=== PATIENT | male | born 1970 | race Caucasian/White ===

== ENCOUNTER 2016-03-17 20:19 | Emergency (ER) | payer OTHER ==
[~2016-03-17] VITALS: Ht 188 cm; Wt 90.7 kg
[2016-03-17 20:25] VITALS: BP 147/85
[2016-03-17 21:06] LABS: KETONES,URINE Negative (NEGATIVE); LEUKOCYTE ESTERASE ,URINE Negative (NEGATIVE)
[2016-03-17 21:15] LABS: ADD UA MICROSCOPIC YES
[2016-03-17 21:23] LABS: ADD URINE CULTURE NO; WBC,URINE 0-2 /HPF (0-3)
== END 2016-03-17 21:53 | disposition home or self-care (01) ==
LOC: ER 20:27
DX: R30.0 Dysuria (principal); N34.2 Other urethritis; R31.9 Hematuria, unspecified
CPT/HCPCS: 81000-TC; 87491; 87591; A4606; Z7610

== ENCOUNTER 2017-10-19 18:55 | Emergency (ER) | payer OTHER ==
[~2017-10-19] VITALS: Ht 182.9 cm; Wt 99.8 kg
--- NOTE | 2017-10-19 19:30 | NUR ---
LEFT SIDED CP X 1 HOUR [employer], NON RADIATING. WORSENED TODAY AFTER DRINKING COFFEE. NAD NOTED. PT AAO X4, AMB WITH STEADY GAIT. RR EVEN AND UNLABORED. MD AT BEDSIDE FOR EVAL.
--- NOTE | 2017-10-19 19:49 | NUR ---
BLOOD DRAWN CALLED LAB FOR PICKUP
[2017-10-19] MEDS ORDERED: ASPIRIN 81 MG TAB.CHEW ONE (19:52)
[2017-10-19] MEDS: ASPIRIN 81 MG TAB.CHEW PO ONE (19:54)
[2017-10-19 19:57] LABS: BASOPHILS # (AUTO) 0.2 /CMM (0.0-0.2); BASOPHILS % (AUTO) 2.1 % (0.0-2.0); EOSINOPHILS % (AUTO) 3.6 % (0.0-6.0); HEMATOCRIT 51 % (39-51); HEMOGLOBIN 16.5 g/dL (13.5-17.5); LYMPHOCYTES % (AUTO) 39.6 % (20.0-44.0); MEAN CORPUSCULAR HEMOGLOBIN 29 PG (26.0-33.0); MEAN CORPUSCULAR HGB CONC 33 g/dl (31.0-36.0); MEAN CORPUSCULAR VOLUME 88 fL (80-96); MONOCYTES # (AUTO) 0.5 /CMM (0.1-1.30); MONOCYTES % (AUTO) 6.4 % (2.0-12.0); NEUTROPHILS # (AUTO) 3.7 /CMM (1.8-8.9); NEUTROPHILS % (AUTO) 48.3 % (43.0-81.0); PLATELET COUNT (AUTO) 364 /CMM (150-450); RDW COEFFICIENT OF VARIATION 12.1 (11.5-15.0); RED BLOOD CELL COUNT(AUTO) 5.76 MIL/uL (4.5-6.0); WHITE BLOOD COUNT (AUTO) 7.7 K/uL (4.3-11.0)
[2017-10-19 20:12] LABS: TROPONIN I < 0.017 ng/mL (0.00-0.056)
[2017-10-19 20:48] LABS: CALCIUM, SERUM 9.1 mg/dL (8.5-10.1); CARBON DIOXIDE 28 mmol/L (21-32); CHLORIDE 101 mmol/L (98-107); CREATININE 1.1 mg/dL (0.6-1.3); GLUCOSE 96 mg/dL (74-106); POTASSIUM 4.1 mmol/L (3.5-5.1); SODIUM SERUM 139 mmol/L (136-145); UREA NITROGEN, BLOOD 16 mg/dL (7-18)
[2017-10-19 20:54] LABS: ALANINE AMINOTRANSFERASE 63 U/L (12-78); ALBUMIN 4.5 g/dL (3.4-5.0); ALKALINE PHOSPHATASE 100 U/L (46-116); ASPARTATE AMINOTRANSFERASE 33 U/L (15-37); BILIRUBIN,DIRECT 0.1 mg/dL (0.0-0.2); TOTAL PROTEIN, SERUM 8.1 g/dL (6.4-8.2)
[2017-10-19 23:38] VITALS: BP 160/101
== END 2017-10-19 23:39 | disposition home or self-care (01) ==
LOC: ER 18:57
DX: R07.89 Other chest pain (principal); I10 Essential (primary) hypertension
CPT/HCPCS: 36415; 71045-TC; 80048-TC; 80076-TC; 84484-TC; 85025-TC; A4606; Z7610

== ENCOUNTER 2018-03-08 16:30 | Emergency (ER) | payer OTHER ==
[~2018-03-08] VITALS: Ht 188 cm; Wt 98.4 kg
[2018-03-08 16:44] VITALS: BP 172/112
== END 2018-03-08 17:01 | disposition home or self-care (01) ==
LOC: ER 16:30
DX: R59.1 Generalized enlarged lymph nodes (principal); I10 Essential (primary) hypertension

== ENCOUNTER 2018-08-18 14:24 | Emergency (ER) | payer OTHER ==
[~2018-08-18] VITALS: Ht 188 cm; Wt 98.9 kg
[2018-08-18 15:23] LABS: BASOPHILS # (AUTO) 0.1 /CMM (0.0-0.2); BASOPHILS % (AUTO) 0.9 % (0.0-2.0); EOSINOPHILS % (AUTO) 4.3 % (0.0-6.0); HEMATOCRIT 45 % (39-51); HEMOGLOBIN 15.4 g/dL (13.5-17.5); LYMPHOCYTES # (AUTO) 2.6 /CMM (0.8-4.8); LYMPHOCYTES % (AUTO) 40.1 % (20.0-44.0); MEAN CORPUSCULAR HGB CONC 34 g/dl (31.0-36.0); MEAN CORPUSCULAR VOLUME 88 fL (80-96); MONOCYTES # (AUTO) 0.6 /CMM (0.1-1.30); MONOCYTES % (AUTO) 8.6 % (2.0-12.0); NEUTROPHILS % (AUTO) 46.1 % (43.0-81.0); PLATELET COUNT (AUTO) 324 /CMM (150-450); RED BLOOD CELL COUNT(AUTO) 5.14 MIL/uL (4.5-6.0); WHITE BLOOD COUNT (AUTO) 6.6 K/uL (4.3-11.0)
[2018-08-18] MEDS ORDERED: KETOROLAC TROMETHAMINE 15 MG/ML VIAL ONE (15:27)
[2018-08-18] MEDS ORDERED: ONDANSETRON HCL/PF 4 MG/2 ML VIAL ONE (15:27)
[2018-08-18] MEDS ORDERED: IV NS 0.9% 1,000 ML BAG IV ONE (15:30)
[2018-08-18] MEDS ORDERED: ONDANSETRON HCL/PF 4 MG/2 ML VIAL IVP ONE (15:30)
[2018-08-18] MEDS ORDERED: KETOROLAC TROMETHAMINE INJ 30 MG/ML VIAL IV ONE (15:30)
[2018-08-18 15:31] LABS: CALCIUM, SERUM 8.3 mg/dL (8.5-10.1); CREATININE 0.9 mg/dL (0.6-1.3); POTASSIUM 3.7 mmol/L (3.5-5.1)
[2018-08-18 15:36] LABS: ALBUMIN 3.6 g/dL (3.4-5.0); BILIRUBIN,DIRECT 0.1 mg/dL (0.0-0.2); BILIRUBIN,TOTAL 0.9 mg/dL (0.2-1.0); TOTAL PROTEIN, SERUM 6.9 g/dL (6.4-8.2)
[2018-08-18 16:42] VITALS: BP 150/100
--- NOTE | 2018-08-18 16:46 | NUR ---
for discharge- Patient discharged to home in stable condition. Written and verbal after care instructions given. Patient verbalizes understanding of instruction. Ambulatory Stable
== END 2018-08-18 16:45 | disposition home or self-care (01) ==
LOC: ER 14:28
DX: R10.13 Epigastric pain (principal); R21 Rash and other nonspecific skin eruption; I10 Essential (primary) hypertension
CPT/HCPCS: 36415; 71045; 80048; 80076; 83690; 85025; 96374; 96375; 99284; J1885; J2405; J7030

== ENCOUNTER 2019-03-25 14:54 | Emergency (ER) | payer OTHER ==
[~2019-03-25] VITALS: Ht 188 cm; Wt 102.1 kg
--- NOTE | 2019-03-25 14:59 | NUR ---
CAME IN FOR ON AND OFF COUGH AND CONGESTION x 2 WEEKS, TO ER BED 9, HOOKED TO BP MONITOR AND POX, CHANGED TO HOSP GOWN, WARM BLANKET PROVIDED, PATIENT AOx ,4 BREATHING EVEN AND UNLABORED, NAD NOTED.
--- NOTE | 2019-03-25 15:00 | NUR ---
DR MORAN AT BEDSIDE
[2019-03-25] MEDS ORDERED: BENZONATATE 100 MG CAPSULE PO STA (15:04)
[2019-03-25] MEDS ORDERED: GUAIFENESIN LA 600 MG TABLET.SA PO ONE ×2 (15:20→15:30)
--- NOTE | 2019-03-25 16:31 | NUR ---
Patient discharged to home in stable condition. Written and verbal after care instructions given. Patient verbalizes understanding of instruction.
[2019-03-25 16:32] VITALS: BP 152/94
== END 2019-03-25 16:32 | disposition home or self-care (01) ==
LOC: ER 14:57
DX: J20.9 Acute bronchitis, unspecified (principal); I10 Essential (primary) hypertension
CPT/HCPCS: 71046

== ENCOUNTER 2019-04-30 15:40 | Emergency (ER) | payer OTHER ==
[~2019-04-30] VITALS: Ht 188 cm; Wt 99.8 kg
[2019-04-30 16:02] VITALS: BP 179/111
--- NOTE | 2019-04-30 16:32 | NUR ---
Patient discharged to home in stable condition. Written and verbal after care instructions given. Patient verbalizes understanding of instruction.
== END 2019-04-30 16:32 | disposition home or self-care (01) ==
LOC: ER 15:42
DX: J20.9 Acute bronchitis, unspecified (principal); I10 Essential (primary) hypertension

== ENCOUNTER 2019-10-09 19:31 | Emergency (ER) | payer OTHER ==
[~2019-10-09] VITALS: Ht 188 cm; Wt 102.1 kg
[2019-10-09 19:52] VITALS: BP 187/115
[2019-10-09] MEDS ORDERED: DOCUSATE SODIUM LIQ 100 MG/10 ML UDC ONE (20:21)
[2019-10-09] MEDS ORDERED: DOCUSATE SODIUM LIQ 100 MG/10 ML UDC NG ONE (20:30)
== END 2019-10-09 21:57 | disposition home or self-care (01) ==
LOC: ER 19:34
DX: H61.21 Impacted cerumen, right ear (principal); I10 Essential (primary) hypertension
CPT/HCPCS: 69209; 99282; A6403; A6407

== ENCOUNTER 2019-10-13 14:47 | Emergency (ER) | payer OTHER ==
[~2019-10-13] VITALS: Ht 193 cm; Wt 90.7 kg
[2019-10-13 15:26] VITALS: BP 174/110
== END 2019-10-13 16:20 | disposition home or self-care (01) ==
LOC: ER 14:51
DX: H60.91 Unspecified otitis externa, right ear (principal); I10 Essential (primary) hypertension

== ENCOUNTER 2020-07-11 14:00 | Emergency (ER) | payer OTHER ==
[~2020-07-11] VITALS: Ht 188 cm; Wt 104.3 kg
--- NOTE | 2020-07-11 14:27 | NUR ---
BIBS FROM HOME TO ER BED 7. AAOX4. NOT IN RESP DISTRESS. AMBULATORY. CAME IN FOR SOB. PER PT HE HAS BEEN FEELING SOB FOR THE PAST 5 DAYS. PT IS SATTING 100% ON RA BREATHING EVEN AND UNLABORED. MD WAS AT THE BEDSIDE FOR EVAL. ORDERS RECEIVED, NOTED AND CARRIED OUT.
[2020-07-11 14:39] LABS: BASOPHILS # (AUTO) 0.1 /CMM (0.0-0.2); BASOPHILS % (AUTO) 0.8 % (0.0-2.0); HEMATOCRIT 47 % (39-51); HEMOGLOBIN 15.9 g/dL (13.5-17.5); LYMPHOCYTES # (AUTO) 2.6 /CMM (0.8-4.8); LYMPHOCYTES % (AUTO) 36.3 % (20.0-44.0); MEAN CORPUSCULAR HGB CONC 34 g/dl (31.0-36.0); MEAN CORPUSCULAR VOLUME 87 fL (80-96); MONOCYTES # (AUTO) 0.5 /CMM (0.1-1.30); MONOCYTES % (AUTO) 7.3 % (2.0-12.0); NEUTROPHILS # (AUTO) 3.6 /CMM (1.8-8.9); NEUTROPHILS % (AUTO) 51.6 % (43.0-81.0); PLATELET COUNT (AUTO) 326 /CMM (150-450); RED BLOOD CELL COUNT(AUTO) 5.39 MIL/uL (4.5-6.0)
[2020-07-11 14:48] LABS: CALCIUM, SERUM 8.6 mg/dL (8.5-10.1); CARBON DIOXIDE 27 mmol/L (21-32); CHLORIDE 105 mmol/L (98-107); GLUCOSE 125 mg/dL (74-106); POTASSIUM 3.7 mmol/L (3.5-5.1); SODIUM SERUM 139 mmol/L (136-145); UREA NITROGEN, BLOOD 20 mg/dL (7-18)
[2020-07-11] MEDS ORDERED: AMLO-213 PO (15:23)
--- NOTE | 2020-07-11 15:43 | NUR ---
Patient discharged to home in stable condition. Written and verbal after care instructions given. Patient verbalizes understanding of instruction. Pt ambulatory with a steady gait
[2020-07-11 15:48] VITALS: BP 170/101
== END 2020-07-11 15:48 | disposition home or self-care (01) ==
LOC: ER 14:03
DX: R06.02 Shortness of breath (principal); I10 Essential (primary) hypertension; Z87.891 Personal history of nicotine dependence
CPT/HCPCS: 36415; 71045-TC; 80048-TC; 84484-TC; 85025-TC

== ENCOUNTER 2020-08-12 17:43 | Emergency (ER) | payer OTHER ==
[~2020-08-12] VITALS: Ht 188 cm; Wt 99.8 kg
[~2020-08-12 17:43] MED LIST: AMLO-213 PO
[2020-08-12 17:55] VITALS: BP 161/111
--- NOTE | 2020-08-12 17:58 | NUR ---
SORETHROAT X 3 DAYS; NO FEVER HTN - DOES NOT TAKE ANY MEDS - KNOWN HTN; BUT THE HTN MEDS MAKE HIM TIRED.
[2020-08-12] MEDS ORDERED: AZIT250T13 PO (18:19)
[2020-08-12] MEDS ORDERED: IBUP-1955 PO (18:19)
[2020-08-12] MEDS ORDERED: IBUPROFEN 600 MG TABLET ONE (18:23)
[2020-08-12] MEDS ORDERED: IBUPROFEN 600 MG TABLET PO ONE (18:30)
== END 2020-08-12 18:33 | disposition home or self-care (01) ==
LOC: ER 17:47
DX: J02.9 Acute pharyngitis, unspecified (principal); I10 Essential (primary) hypertension; Z79.899 Other long term (current) drug therapy

== ENCOUNTER 2021-11-09 18:41 | Emergency (ER) | payer OTHER ==
[~2021-11-09] VITALS: Ht 188 cm; Wt 99.8 kg
[~2021-11-09 18:41] MED LIST changes: +AZIT250T13 PO; +IBUP-1955 PO
[2021-11-09 20:52] VITALS: BP 198/121
[2021-11-09] MEDS ORDERED: AZIT250T PO (21:13)
[2021-11-09] MEDS ORDERED: BENA40TA67 PO (21:30)
--- NOTE | 2021-11-09 21:31 | NUR ---
Patient discharged to home in stable condition. Written and verbal after care instructions given. Patient verbalizes understanding of instruction.
== END 2021-11-09 21:31 | disposition home or self-care (01) ==
LOC: ER 18:46
DX: J20.9 Acute bronchitis, unspecified (principal); I10 Essential (primary) hypertension; Z79.899 Other long term (current) drug therapy

== ENCOUNTER 2022-07-13 17:41 | Emergency (ER) | payer OTHER ==
[~2022-07-13] VITALS: Ht 188 cm; Wt 104.3 kg
[~2022-07-13 17:41] MED LIST changes: +AZIT250T PO; +BENA40TA67 PO
[2022-07-13 17:44] VITALS: BP 186/117
--- NOTE | 2022-07-13 17:45 | NUR ---
BIB C/O COUGH CHILLS, AND SHORTNESS OF BREATH X 3 DAYS. WILL CONTINUE TO MONITOR THE PATIENT.
[2022-07-13] MEDS ORDERED: AZIT1PAC9 PO (17:55)
--- NOTE | 2022-07-13 18:02 | NUR ---
Patient discharged to home in stable condition. Written and verbal after care instructions given. Patient verbalizes understanding of instruction.
== END 2022-07-13 18:02 | disposition home or self-care (01) ==
LOC: ER 17:45
DX: J40 Bronchitis, not specified as acute or chronic (principal); I10 Essential (primary) hypertension; Z79.899 Other long term (current) drug therapy

== ENCOUNTER 2022-12-22 10:07 | Emergency (ER) | payer OTHER ==
[~2022-12-22] VITALS: Ht 188 cm; Wt 106.6 kg
[~2022-12-22 10:07] MED LIST changes: +AZIT1PAC9 PO
[2022-12-22] MEDS ORDERED: KETOROLAC TROMETHAMINE INJ 30 MG/ML VIAL IM ONE (10:30)
[2022-12-22] MEDS ORDERED: KETOROLAC TROMETHAMINE 15 MG/ML VIAL ONE (10:31)
[2022-12-22 10:41] LABS: BASOPHILS # (AUTO) 0.1 K/uL (0.0-0.2); BASOPHILS % (AUTO) 0.9 % (0.0-2.0); EOSINOPHILS # (AUTO) 0.6 K/uL (0.0-0.7); EOSINOPHILS % (AUTO) 7.4 % (0.0-6.0); HEMATOCRIT 42 % (39-51); HEMOGLOBIN 14.6 g/dL (13.5-17.5); LYMPHOCYTES # (AUTO) 2.5 K/uL (0.8-4.8); LYMPHOCYTES % (AUTO) 31.1 % (20.0-44.0); MEAN CORPUSCULAR HEMOGLOBIN 30 PG (26.0-33.0); MEAN CORPUSCULAR HGB CONC 35 g/dl (31.0-36.0); MEAN CORPUSCULAR VOLUME 87 fL (80-96); MONOCYTES # (AUTO) 0.6 K/uL (0.1-1.30); NEUTROPHILS # (AUTO) 4.3 K/uL (1.8-8.9); NEUTROPHILS % (AUTO) 53.6 % (43.0-81.0); PLATELET COUNT (AUTO) 348 K/uL (150-450); RED BLOOD CELL COUNT(AUTO) 4.87 MIL/uL (4.5-6.0); RED CELL DISTRIBUTION WIDTH 13.2 % (11.5-15.0)
[2022-12-22 10:43] LABS: CARBON DIOXIDE 24 mmol/L (21-32); CHLORIDE 106 mmol/L (98-107); CREATININE 1.3 mg/dL (0.6-1.3); GLUCOSE 156 mg/dL (74-106); SODIUM SERUM 139 mmol/L (136-145); UREA NITROGEN, BLOOD 19 mg/dL (7-18)
[2022-12-22 10:56] LABS: NT-PRO BNP 79 pg/mL (0-125)
[2022-12-22] MEDS ORDERED: BENZ-13 PO (11:43)
[2022-12-22] MEDS ORDERED: IBUP-1955 PO (11:43)
[2022-12-22 13:09] VITALS: BP 131/89; TEMP 97.8; O2SAT 100
== END 2022-12-22 13:09 | disposition home or self-care (01) ==
LOC: ER 10:15
DX: J06.9 Acute upper respiratory infection, unspecified (principal); R07.89 Other chest pain; R05.9 Cough, unspecified; R09.81 Nasal congestion; I10 Essential (primary) hypertension; E78.5 Hyperlipidemia, unspecified; Z79.899 Other long term (current) drug therapy; Z20.822 Contact with and (suspected) exposure to COVID-19
CPT/HCPCS: 99285; 96374; 71045; 93005 ×2; 85025; 80048; 36415; 84484 ×2; 83880; J1885

== ENCOUNTER 2023-02-03 19:14 | Emergency (ER) | payer OTHER ==
[~2023-02-03] VITALS: Ht 188 cm; Wt 108.9 kg
[~2023-02-03 19:14] MED LIST changes: +BENZ-13 PO
[2023-02-03 19:32] VITALS: TEMP 98.1
[2023-02-03 19:40] VITALS: BP 172/98; O2SAT 98
[2023-02-03] MEDS ORDERED: AZIT250T PO (19:43)
== END 2023-02-03 19:59 | disposition home or self-care (01) ==
LOC: ER 19:16
DX: J06.9 Acute upper respiratory infection, unspecified (principal); H66.93 Otitis media, unspecified, bilateral; R09.81 Nasal congestion; R05.9 Cough, unspecified; I10 Essential (primary) hypertension; E78.5 Hyperlipidemia, unspecified

== ENCOUNTER 2024-04-25 17:43 | Emergency (ER) | payer OTHER ==
[~2024-04-25] VITALS: Ht 188 cm; Wt 104.3 kg
[2024-04-25 17:53] VITALS: BP 205/105; TEMP 98
[2024-04-25 18:28] VITALS: O2SAT 97
== END 2024-04-25 18:29 | disposition home or self-care (01) ==
LOC: ER 17:47
DX: H57.89 Other specified disorders of eye and adnexa (principal); E78.5 Hyperlipidemia, unspecified; I10 Essential (primary) hypertension; Z79.899 Other long term (current) drug therapy

== ENCOUNTER 2024-11-13 10:37 | Emergency (ER) | payer OTHER ==
[~2024-11-13] VITALS: Ht 188 cm; Wt 89.4 kg
[2024-11-13 10:47] VITALS: BP 129/71; TEMP 98.1
[2024-11-13] MEDS ORDERED: CIPR7.5D9 RIGHT EAR (11:04)
[2024-11-13] MEDS ORDERED: AMOX-430 PO (11:04)
[2024-11-13 11:14] VITALS: O2SAT 98
== END 2024-11-13 11:15 | disposition home or self-care (01) ==
LOC: ER 10:39
DX: H60.91 Unspecified otitis externa, right ear (principal); I11.9 Hypertensive heart disease without heart failure; E78.5 Hyperlipidemia, unspecified